=== PATIENT | female | born 1990 | race Caucasian/White ===

== ENCOUNTER 2017-11-19 11:04 | Emergency (ER) | payer OTHER ==
[2017-11-19 11:21] VITALS: BP 111/75; PULSE 98; TEMP 98.8; BMI 25.6
--- NOTE | 2017-11-19 11:57 | PDOC ---
History of Present Illness - General Chief Complaint: Cold Symptoms Stated Complaint: COUGH, COLD LIKE SYMPTOMS Time Seen by Provider: 11/19/17 11:40 History Source: Patient Exam Limitations: No Limitations - History of Present Illness Initial Comments: 11/19/17 11:56 This is a 27-year-old woman who presents emergency Department with nasal congestion, frontal headache, dry unproductive cough for the past 3 days. Patient states she's been taking Tylenol and Motrin minimal relief of symptoms. Patient states she had one episode of posttussive vomiting which was just undigested food. Patient with occasional green mucus production with coughing. She denies any fevers, chills, earaches, sore throat. Past History - Past Medical History Allergies/Adverse Reactions: Allergies Allergy/AdvReac Type Severity Reaction Status Date / Time No Known Allergies Allergy Verified 11/19/17 11:04 Home Medications: Ambulatory Orders NK [No Known Home Medication] 11/19/17 Anemia: No Asthma: No Cancer: No Cardiac Disorders: No CVA: No COPD: No CHF: No Dementia: No Diabetes: No GI Disorders: No Disorders: No HTN: No Hypercholesterolemia: No Liver Disease: No Seizures: No Thyroid Disease: No - Surgical History Abdominal Surgery: No Appendectomy: No Cardiac Surgery: No Cholecystectomy: No Lung Surgery: No Neurologic Surgery: No Orthopedic Surgery: No - Reproductive History (#): 0 Para: 0 Cervical CA: No Dysfunctional Uterine Bleeding: No Ectopic : No Endometrial CA: No Polycystic Ovaries: No Therapeutic (s) & number: No Tubal Ligation: No - Suicide/Smoking/Psychosocial Hx Smoking History: Never smoked Have you smoked in the past 12 months: No Number of Cigarettes Smoked Daily: 0 Hx Alcohol Use: No Drug/Substance Use Hx: No Substance Use Type: None Hx Substance Use Treatment: No Review of Systems - Review of Systems Able to Perform ROS?: Yes Is the patient limited Danish proficient: No Constitutional: No: Symptoms Reported HEENTM: Yes: See HPI Respiratory: Yes: See HPI Cardiac (ROS): No: Symptoms Reported ABD/GI: Yes: See HPI : No: Symptoms Reported Musculoskeletal: No: Symptoms Reported Integumentary: No: Symptoms Reported Neurological: No: Symptoms reported Endocrine: No: Symptoms Reported Hematologic/Lymphatic: No: Symptoms Reported *Physical Exam - Vital Signs Last Vital Signs Temp Pulse Resp BP Pulse Ox 98.8 F 98 H 20 111/75 98 11/19/17 11:05 11/19/17 11:05 11/19/17 11:05 11/19/17 11:05 11/19/17 11:05 - Physical Exam General Appearance: Yes: Appropriately Dressed. No: Apparent Distress HEENT: positive: EOMI, FELIPE, Normal Voice, TMs Normal, Pharynx Normal, Nasal Congestion, Sinus Tenderness (frontal) Neck: positive: Trachea midline, Supple Respiratory/Chest: positive: Lungs Clear, Normal Breath Sounds. negative: Respiratory Distress, Accessory Muscle Use Cardiovascular: positive: Regular Rhythm, Regular Rate, S1, S2. negative: Murmur Gastrointestinal/Abdominal: positive: Normal Bowel Sounds, Soft. negative: Tender Musculoskeletal: positive: Normal Inspection. negative: CVA Tenderness Extremity: positive: Normal Inspection Integumentary: positive: Normal Color, Dry, Warm Neurologic: positive: Alert, Normal Response Medical Decision Making - Medical Decision Making 11/19/17 11:58 A/P: 27-year-old woman with without significant past medical history with 3 days of upper respiratory symptoms Patient with frontal sinus tenderness Frontal headache which worsens when patient looks towards the ground Cobblestoning present in the posterior oropharynx Mucous noted in the posterior oropharynx Lungs clear auscultation bilaterally Symptoms consistent with a frontal sinusitis and coughing related to postnasal drip. Patient educated to the self limiting nature of sinusitis and to return to care if symptoms persist for more than 10 days. Until then patient verbalizes understanding of symptomatic treatment. *DC/Admit/Observation/Transfer Diagnosis at time of Disposition: Irritable airways Sinusitis Qualifiers: Sinusitis location: frontal Chronicity: acute Recurrence: not specified as recurrent Qualified Code(s): J01.10 - Acute frontal sinusitis, unspecified - Discharge Dispostion Disposition: HOME Condition at time of disposition: Stable Decision to Admit order: No - Referrals Referrals: Flor Muir MD [Primary Care Provider] - - Patient Instructions Additional Instructions: Rest, drink lots of fluids: Teas, water, soups, Pedialyte Saltwater gargles Steamy showers/seem to face break up mucus Avoid contact with others until fevers and cough resolved Lots of handwashing and good hygiene Continue [id number] medications for symptomatic relief- Zyrtec, Charity, Benadryl, Claritin Tylenol or Motrin for fever and pain Followup with private physician in one to 2 days as needed Return to emergency department for worsened symptoms, fevers, dehydration - Post Discharge Activity
== END 2017-11-19 12:09 | disposition home or self-care (01) ==
LOC: JER 11:04
DX: J01.10 Acute frontal sinusitis, unspecified (principal)
CPT/HCPCS: 99281-25

== ENCOUNTER 2024-12-15 07:10 | Day surgery (SDC) | payer OTHER ==
[2024-12-08 13:43] VITALS: BMI 29.6
[2024-12-15] MEDS ORDERED: ACETAMINOPHEN INJECTION 100 ML ONE (10:54)
[2024-12-15] MEDS ORDERED: ONDANSETRON 4 MG/2 ML VIAL ONE (11:04)
[2024-12-15] MEDS ORDERED: MIDAZOLAM HCL 2 MG/2 ML SINGLE DOSE VIAL ONE (11:04)
[2024-12-15] MEDS ORDERED: DEXAMETHASONE SOD PHOSPHATE 4 MG/1 ML VIAL ONE (11:04)
[2024-12-15] MEDS ORDERED: ROCURONIUM BROMIDE 50 MG/5 ML SYRINGE ONE (11:04)
[2024-12-15] MEDS ORDERED: LIDOCAINE HCL 2% 100 MG/5 ML DISP.SYRIN ONE (11:04)
[2024-12-15] MEDS ORDERED: KETOROLAC TROMETHAMINE 30 MG/1 ML VIAL ONE (11:04)
[2024-12-15] MEDS ORDERED: PROPOFOL 20 ML ONE (11:04)
[2024-12-15] MEDS ORDERED: SUGAMMADEX SODIUM 200 MG/2 ML VIAL ONE (11:05)
[2024-12-15] MEDS: [UNRECOGNIZED DRUG - OTHER] INF ONE (12:35)
[2024-12-15] MEDS ORDERED: ONDANSETRON 4 MG/2 ML VIAL IVPUSH PRN (13:03)
[2024-12-15] MEDS ORDERED: LACTATED RINGERS SOLUTION 1,000 ML IV SCH (13:15)
[2024-12-15 15:54] VITALS: RESP 18
[2024-12-15 15:59] VITALS: BP 112/65; PULSE 82; TEMP 97.5
== END 2024-12-15 15:45 | disposition home or self-care (01) ==
LOC: JASU-SURG 07:10
PROVIDERS: ATTEND Specialist
PROC: 0UT74ZZ Resection of Bilateral Fallopian Tubes, Percutaneous Endoscopic Approach (ICD-10-PCS; principal; 2024-12-15 10:30)
DX: Z30.2 Encounter for sterilization (principal)
CPT/HCPCS: 81025; 88305-TC; 94760